=== PATIENT | female | born 1980 | race Caucasian/White ===

== ENCOUNTER 2016-12-27 12:55 | Inpatient (IN) | payer MEDICAID ==
[~2016-12-27] VITALS: Ht 170.2 cm; Wt 98.9 kg
[2016-12-27 15:55] LABS: BASOPHIL % 0.4 % (0-2); PLATELET COUNT 269 x10^3mcL (130-400)
[2016-12-27 15:56] LABS: RED CELL DISTRIBUTION WIDTH 14.9 % (11.5-14.5)
[2016-12-27 16:05] LABS: CALCIUM 8.3 mg/dL (8.5-10.1); CARBON DIOXIDE 26.7 mmol/L (21-32); CHLORIDE SERUM 107 mmol/L (98-107); CREATININE SERUM 0.8 mg/dL (0.6-1.0); GFR1 > 60 mL/min; GLUCOSE SERUM 83 mg/dL (74-106); POTASSIUM SERUM 3.8 mmol/L (3.5-5.1); SODIUM SERUM 142 mmol/L (136-145)
[2016-12-27 16:10] LABS: ALBUMIN 3.7 g/dL (3.4-5.0); ALKALINE PHOSPHATASE 90 U/L (46-116); ALT/SGPT 37 U/L (14-59); AMYLASE 47 U/L (25-115); AST/SGOT 36 U/L (15-37); BILIRUBIN TOTAL 0.2 mg/dL (0.20-1.00); LIPASE 132 IU/L (73-393); TOTAL PROTEIN, SERUM 7.8 g/dL (6.4-8.2)
[2016-12-27] MEDS ORDERED: RIFADIN150 MG PO (18:07)
[2016-12-27] MEDS ORDERED: MOT600 PO (18:08)
[2016-12-27] MEDS ORDERED: PLAQUENIL200 MG PO (18:08)
[2016-12-27] MEDS ORDERED: ATIVAN0.5 M1 PO (18:09)
[2016-12-27] MEDS ORDERED: NOR10T PO (18:09)
[2016-12-27] MEDS ORDERED: ZOLOFT50 MG PO (18:10)
[2016-12-27] MEDS ORDERED: PODIAPN CAPSUL1 EACH PO (18:10)
[2016-12-27] MEDS ORDERED: FOLGARD1 TAB PO (18:10)
[2016-12-27] MEDS ORDERED: PROTONIX40 MG PO (18:10)
[2016-12-27] MEDS ORDERED: ZOF4 PO (18:11)
[2016-12-27] MEDS ORDERED: DITROPAN XL5 MG PO (18:11)
[2016-12-27] MEDS ORDERED: MYRBETRIQ25 MG PO (18:11)
[2016-12-27] MEDS ORDERED: HYDROXYCHLOROQ200 MG PO (18:11)
[2016-12-27 18:53] LABS: MAGNESIUM 2.1 mg/dL (1.8-2.4); PHOSPHOROUS 3.6 mg/dL (2.5-4.9)
[2016-12-27 19:00] LABS: CHOLESTEROL/HDL RATIO 2.6
[2016-12-27 19:01] LABS: T3 TOTAL 1.21 ng/mL
[2016-12-27 19:36] VITALS: BP 144/87
[2016-12-27 19:48] LABS: FREE THYROXINE INDEX 3.1 ug/dL (1.4-4.5); T4(THYROXINE) 9.7 ug/dL (4.7-13.3)
[2016-12-27 20:09] LABS: FREE T4 1.06 ng/dL (0.76-1.46)
[2016-12-27 21:39] VITALS: BP 144/87
[2016-12-28 05:58] VITALS: BP 90/54
[2016-12-28 07:16] LABS: CALCIUM 7.6 mg/dL (8.5-10.1); CARBON DIOXIDE 27.7 mmol/L (21-32); CHLORIDE SERUM 108 mmol/L (98-107); CREATININE SERUM 0.7 mg/dL (0.6-1.0); GFR1 > 60 mL/min; GLUCOSE SERUM 88 mg/dL (74-106); MAGNESIUM 2.1 mg/dL (1.8-2.4); PHOSPHOROUS 3.4 mg/dL (2.5-4.9); POTASSIUM SERUM 3.8 mmol/L (3.5-5.1); SODIUM SERUM 141 mmol/L (136-145)
[2016-12-28 07:33] LABS: BASOPHIL % 0.4 % (0-2); PLATELET COUNT 220 x10^3mcL (130-400)
[2016-12-28 07:42] LABS: RED CELL DISTRIBUTION WIDTH 14.7 % (11.5-14.5)
[2016-12-28 09:38] VITALS: BP 113/83
[2016-12-28 09:49] LABS: UA SPECIFIC GRAVITY >=1.030 (1.005-1.035); microscopic required? YES; urine erythrocyte NEGATIVE (NEGATIVE)
[2016-12-28 09:50] LABS: AMPHETAMINE QUAL UR NONE DETECTED (NEG <=1000)
[2016-12-28 12:17] VITALS: Ht 170.2 cm; Wt 98.9 kg
[2016-12-28 13:35] VITALS: BP 127/87
[2016-12-28 17:45] VITALS: BP 111/69; BP 118/47
[2016-12-28 21:46] VITALS: BP 154/86
[2016-12-29 06:24] LABS: BASOPHIL % 0.5 % (0-2); PLATELET COUNT 231 x10^3mcL (130-400); RED CELL DISTRIBUTION WIDTH 14.2 % (11.5-14.5)
[2016-12-29 06:26] VITALS: BP 95/61
[2016-12-29 06:47] LABS: CALCIUM 7.8 mg/dL (8.5-10.1); CARBON DIOXIDE 25.2 mmol/L (21-32); CHLORIDE SERUM 107 mmol/L (98-107); CREATININE SERUM 0.7 mg/dL (0.6-1.0); GFR1 > 60 mL/min; GLUCOSE SERUM 81 mg/dL (74-106); MAGNESIUM 2.1 mg/dL (1.8-2.4); PHOSPHOROUS 3.4 mg/dL (2.5-4.9); POTASSIUM SERUM 3.7 mmol/L (3.5-5.1); SODIUM SERUM 142 mmol/L (136-145)
[2016-12-29 08:55] VITALS: BP 107/64
[2016-12-29 14:04] VITALS: BP 141/85
[2016-12-29 16:37] VITALS: BP 128/76
[2016-12-29] MEDS ORDERED: GOOD SENSE OMEP20 MG PO (17:28)
[2016-12-29 17:44] VITALS: BP 128/76
== END 2016-12-29 18:19 | disposition home or self-care (01) | DRG 244 ==
LOC: ED 12:55 → DU 17:36
PROVIDERS: Emergency Medicine; Internal Medicine Gastroenterology; ADMIT Family Medicine
PROC: 0DB78ZX Excision of Stomach, Pylorus, Via Natural or Artificial Opening Endoscopic, Diagnostic (ICD-10-PCS; principal; 2016-12-29 15:00)
DX: K57.32 Diverticulitis of large intestine without perforation or abscess without bleeding (principal); A15.0 Tuberculosis of lung; M32.9 Systemic lupus erythematosus, unspecified; K76.89 Other specified diseases of liver; E83.51 Hypocalcemia; E66.9 Obesity, unspecified; Z68.34 Body mass index [BMI] 34.0-34.9, adult; Z92.21 Personal history of antineoplastic chemotherapy; Z85.41 Personal history of malignant neoplasm of cervix uteri
CPT/HCPCS: 43235; 83880; 84439; J1200; J1610; J1885; J2250; J2270; J2310; J2405; J3010; J3490; J7030; Q0092; Q9966; Q9967

== ENCOUNTER 2018-02-26 23:37 | Emergency (ER) | payer MEDICAID ==
[~2018-02-26 23:37] MED LIST: ATIVAN0.5 M1 PO; DITROPAN XL5 MG PO; FOLGARD1 TAB PO; GOOD SENSE OMEP20 MG PO; HYDROXYCHLOROQ200 MG PO; MOT600 PO; MYRBETRIQ25 MG PO; NOR10T PO; PLAQUENIL200 MG PO; PODIAPN CAPSUL1 EACH PO; PROTONIX40 MG PO; RIFADIN150 MG PO; ZOF4 PO; ZOLOFT50 MG PO
[2018-02-26 23:43] VITALS: Ht 170.2 cm
[2018-02-27 00:42] VITALS: BP 136/91
[2018-02-27 00:49] LABS: CARBON DIOXIDE 28.5 mmol/L (21-32); CHLORIDE SERUM 105 mmol/L (98-107); CREATININE SERUM 0.9 mg/dL (0.6-1.0); GFR1 > 60 mL/min; GLUCOSE SERUM 119 mg/dL (74-106); POTASSIUM SERUM 4.2 mmol/L (3.5-5.1); SODIUM SERUM 142 mmol/L (136-145)
[2018-02-27 00:56] LABS: ALBUMIN 3.7 g/dL (3.4-5.0); ALKALINE PHOSPHATASE 125 U/L (46-116); ALT/SGPT 27 U/L (14-59); AST/SGOT 25 U/L (15-37); BASOPHIL % 0.2 % (0-2); BILIRUBIN TOTAL 0.4 mg/dL (0.20-1.00); LIPASE 157 IU/L (73-393); PLATELET COUNT 246 x10^3mcL (130-400); TOTAL PROTEIN, SERUM 8.2 g/dL (6.4-8.2)
== END 2018-02-27 01:21 | disposition home or self-care (01) ==
LOC: ED 23:37
PROVIDERS: Emergency Medicine
DX: A09 Infectious gastroenteritis and colitis, unspecified (principal); T62.91XA Toxic effect of unspecified noxious substance eaten as food, accidental (unintentional), initial encounter; Z90.49 Acquired absence of other specified parts of digestive tract; Y92.89 Other specified places as the place of occurrence of the external cause
CPT/HCPCS: 36415; J1885; Q0162